=== PATIENT | female | born 1955 | race Caucasian/White ===

== ENCOUNTER 2017-10-09 18:19 | Inpatient (IN) | payer MEDICARE, OTHER, MEDICAID ==
[2017-10-09 22:46] VITALS: BP 155/75
[2017-10-09] MEDS ORDERED: Magnesium Hydroxide (MOM) 30 mL UDC PO PRN (23:20)
[2017-10-09] MEDS ORDERED: Maalox 30 mL Cup PO PRN (23:20)
[2017-10-10] MEDS: INSULIN ASPART SLIDING SCALE 100 UNITS/ML UNIT SUBQ SCH ×4 (07:07→21:00)
--- NOTE | 2017-10-10 18:57 | History & Physical ---
ADMIT DATE: 10/09/2017 HISTORY OF PRESENT ILLNESS: A 62-year-old female, who presented from a local hospital after she tried to harm herself. The patient stated that she was watching a show about suicide and young female and decided that she felt so sorry for them that she was going to experience there pain by taking a coca cola bottle and she cut a portion of it open, so that there was an open sharp edge of metal and then slowly started to run that across her lower abdomen especially along the left lower quadrant. When she arrived to the local Emergency Room, she told the ER physician that she was a danger to herself. She was transferred to [facility] for continued workup. ALLERGIES: None. MEDICATIONS: Were reviewed and reconciled. SOCIAL HISTORY: Denies tobacco, alcohol or drugs. She lives by herself. She is a full code. PAST MEDICAL HISTORY: She admits to major depressive disorder, anxiety, diabetes, muscle weakness, and high blood pressure. She denies any surgical procedures at this time. REVIEW OF SYSTEMS: GENERAL: No generalized body aches, fevers or chills. HEENT: Denies blurred vision, double vision or difficulty swallowing. NECK: Denied neck pain, just trouble swallowing or enlarged lymph nodes. CARDIOVASCULAR: Denies chest pain, chest pressure or shortness of breath. RESPIRATORY: Denies shortness of breath, cough or wheezing. ABDOMEN: Admits to left lower quadrant abdominal pain due to superficial lacerations. Denies any abdominal distention, nausea or vomiting. GENITOURINARY: Denies frequency, urgency, hesitancy. SKIN: Superficial laceration along the left lower quadrant of the abdomen is present. She denied any rashes or infections. MUSCULOSKELETAL: No decreased range of motion, muscle weakness, or unsteady gait. PSYCH: Admits to feeling anxious and depressed at this time. She admits to not wanting to kill herself and she would like to go home. LABORATORY DATA: Pending. PHYSICAL EXAMINATION: VITAL SIGNS: 97.3, 66, 18, 140/90. GENERAL: NAD. HEENT: PERRLA, EOMI. NECK: Supple. Trachea midline. CARDIOVASCULAR: Regular rate and rhythm. CHEST: CTA bilaterally. No wheezes, rales or rhonchi. ABDOMEN: Soft, nontender. She is tender directly over the superficial lacerations. Rest her abdomen is nontender, nondistended. Bowel sounds present in all 4 quadrants. SKIN: Left lower quadrant superficial lacerations without surrounding erythema or drainage. ASSESSMENT: 5150 hold for suicidal ideation, hypertension, diabetes, muscle weakness, major depressive disorder, generalized anxiety disorder. PLAN: Admit to [facility] for continued psychological workup. The patient is currently on 5150 hold. The patient will be evaluated by Dr. Tobias for further evaluation and for potential to remove the 5150 based on his assessment. Accu-Cheks, diabetic diet. Regular insulin sliding scale at home. Diabetic medications have been reviewed. There is a p.r.n. blood pressure medication to help control the patient's blood pressure while she is here in [facility]. [facility]# [id number]
[2017-10-10] MEDS: Escitalopram Oxalate 5 mg Tab PO SCH (21:00)
[2017-10-11] MEDS: INSULIN ASPART SLIDING SCALE 100 UNITS/ML UNIT SUBQ SCH ×4 (07:08→21:39)
[2017-10-11] MEDS ORDERED: INSULIN ASPART SLIDING SCALE 100 UNITS/ML UNIT SUBQ SCH (07:30)
--- NOTE | 2017-10-11 08:18 | General Progress Note ---
Subjective - Review of Systems Service Date: 10/11/17 Subjective: Pt seen and eval. I was asked by staff to see her as her bs have been very high. 400s last night. She's been refusing her insulin. Had a long discussion with her. Also, her abd wounds were examined. They'll all scabbed and healing well. No signs of infection. Objective - Results Recent Labs: Laboratory Last Values POC Glucose 180 MG/DL (70 - 105) H 10/11/17 00:10 - Physical Exam Vitals and I&O: Vital Signs Temp 97.7 F 10/11/17 06:30 Pulse 75 10/11/17 06:30 Resp 20 10/11/17 06:30 BP 128/63 10/11/17 06:30 Pulse Ox 96 10/11/17 06:30 Intake & Output 10/10/17 10/11/17 10/11/17 18:59 06:59 18:59 Intake Total 660 Balance 660 Intake: Oral 660 Other: # Voids 2 Active Medications: Current Medications Acetaminophen (Tylenol) 650 mg PO Q4HR PRN PRN Reason: Mild Pain / Temp above 100 Stop: 12/08/17 23:19 Al Hydrox/Mg Hydrox/Simethicone (Maalox) 30 ml PO Q4HR PRN PRN Reason: GI DISTRESS Stop: 12/08/17 23:19 Atorvastatin Calcium (Lipitor) 20 mg PO HS [facility] Stop: 12/10/17 20:59 Diphenoxylate HCl/Atropine (Lomotil) 1 tab PO QID PRN PRN Reason: Diarrhea Stop: 12/10/17 06:01 Escitalopram Oxalate (Lexapro) 5 mg PO HS [facility] PRN Reason: Protocol Stop: 12/09/17 20:59 Last Admin: 10/10/17 21:00 Dose: Not Given Gabapentin (Neurontin) 300 mg PO TID [facility] Stop: 12/10/17 08:59 Glipizide (Glucotrol) 10 mg PO BIDBRS [facility] Stop: 12/10/17 07:59 Insulin Aspart (Novolog Insulin Sliding Scale) 0 units SUBQ ACHS [facility] PRN Reason: Protocol Stop: 12/09/17 07:29 Last Admin: 10/11/17 07:08 Dose: Not Given Lorazepam (Ativan) 0.5 mg PO Q4HR PRN; Protocol PRN Reason: Anxiety Stop: 11/08/17 23:19 Magnesium Hydroxide (Milk Of Magnesia) 30 ml PO HS PRN PRN Reason: Constipation Miscellaneous (Ranolazine [Ranexa]) 500 mg PO BID [facility] Stop: 12/10/17 08:59 Pioglitazone HCl (Actos) 45 mg PO QDAC [facility] Stop: 12/10/17 07:59 Quetiapine Fumarate (Seroquel) 25 mg PO DAILY [facility] PRN Reason: Protocol Stop: 12/10/17 08:59 Quetiapine Fumarate (Seroquel) 50 mg PO HS [facility] PRN Reason: Protocol Stop: 12/10/17 20:59 Sertraline HCl (Zoloft) mg PO DAILY [facility] PRN Reason: Protocol Stop: 12/10/17 08:59 Zolpidem Tartrate (Ambien) 5 mg PO HS PRN PRN Reason: Insomnia Stop: 12/08/17 23:19 General: Alert, Cooperative, No acute distress HEENT: Atraumatic, PERRLA, EOMI Neck: Supple, no JVD, no Thyromegaly Cardiovascular: Regular rate, Normal S1, Normal S2 Lungs: Clear to auscultation Assessment/Plan - Assessment Assessment: DM-OOC Obese - Plan Plan: Pt is on oral diabetic meds, in addition to insulin. Had a long discussion with her. Advised her she needs to allow staff to give her insulin. Weight loss discussed in detail. BS log reviewed.
--- NOTE | 2017-10-11 16:14 | Psychosocial Evaluation ---
DATE OF SERVICE: 10/11/2017 PSYCHIATRIC INITIAL EVALUATION AND MENTAL STATUS EXAM CHIEF COMPLAINT: 5150 hold for dangerous to self. HISTORY OF PRESENT ILLNESS: The patient is a 62-year-old female who was placed on 5150 hold for danger to herself. The patient wanted to "slice her stomach with a knife" according to the hold. The patient did cut her skin in her stomach with a can edge as part of her arm. The patient has been angry and has been depressed. She is minimizing the fact that she cut herself in a suicidal attempt. She also has been in angry and in a depressed mood. She denies any history of depression and she is trying repair her action because of "attention". She has been having issues with her family and she has not been able to handle those and has been under pressure. PAST PSYCHIATRIC HISTORY: The patient minimizes her problems and she said they never had any psychiatric problems. PAST MEDICAL HISTORY: The patient has big flap of skin in her abdomen with some cuts and it seems that the patient lost followup weight. Otherwise, she denies any major medical problems. SOCIAL HISTORY: The patient is guarded and she said that she does not drink alcohol or use any street drugs and did not want to talk much about her family or situation. ALLERGIES: No known allergies. MENTAL STATUS EXAMINATION: The patient appears slightly older than her stated age. Overweight. Seems to be slightly manicky and hyperverbal and argumentative. The patient did not answer questions regarding hallucinations or delusions regarding to suicide or homicide and she said later on that she is not suicidal, but she wants attention. The patient is alert and oriented to time, place, person, and situation. Intact immediate, recent and remote memories. Poor insight and poor judgment. ASSESSMENT: PRIMARY DIAGNOSIS: Unspecified mood disorder, rule out bipolar disorder. TREATMENT PLAN: We will continue to monitor the patient's behavior and condition closely. Also, we will place the patient on 5250 hold and will continue to follow up closely. ESTIMATED LENGTH OF STAY: 5-7 days. THE PATIENT'S STRENGTHS AND WEAKNESSES: The patient's strength is not clear at this time. Weaknesses: Her ineffective coping and her poor insight. AFTER DISCHARGE PLAN: Outpatient treatment and followup. CRITERIA FOR DISCHARGE: The patient will not be suicidal. [facility]# [id number]
[2017-10-11] MEDS: Atorvastatin Calcium 10 MG TAB PO SCH (20:55)
[2017-10-11] MEDS: Escitalopram Oxalate 5 mg Tab PO SCH (20:56)
[2017-10-11] MEDS: Insulin Detemir 100 units/mL 10mL Vial SUBQ SCH (21:43)
[2017-10-12] MEDS: INSULIN ASPART SLIDING SCALE 100 UNITS/ML UNIT SUBQ SCH ×4 (06:32→20:55)
[2017-10-12] MEDS: Diphenoxylate/Atropine 2.5mg Tab PO PRN (18:20)
[2017-10-12] MEDS: Atorvastatin Calcium 10 MG TAB PO SCH (20:52)
[2017-10-12] MEDS: Insulin Detemir 100 units/mL 10mL Vial SUBQ SCH (20:55)
[2017-10-13] MEDS: INSULIN ASPART SLIDING SCALE 100 UNITS/ML UNIT SUBQ SCH ×4 (06:30→21:53)
[2017-10-13] MEDS: Atorvastatin Calcium 10 MG TAB PO SCH (21:25)
[2017-10-13] MEDS: Insulin Detemir 100 units/mL 10mL Vial SUBQ SCH (21:54)
[2017-10-14] MEDS: INSULIN ASPART SLIDING SCALE 100 UNITS/ML UNIT SUBQ SCH ×4 (06:43→21:16)
--- NOTE | 2017-10-14 08:36 | Progress Notes ---
DATE: 10/11/2017 Chart reviewed and patient interviewed. Also discussed the patient's condition with the staff and reviewed the records and labs. The patient is extremely agitated and irritable. The patient also is very hyperverbal and has pressured speech. Also, she is rambling and thought processes are circumstantial and tangential. Also, had periods of agitation and irritability during interview, but at the same time at certain time she seems to be hypomanic. ASSESSMENT: The patient is still agitated and manicky. TREATMENT PLAN: We will continue to monitor her behavior and her condition closely. Also, we will add Seroquel in a dose of 25 mg in the morning and 50 mg at bedtime and we will continue to follow up closely. [facility]# [id number]
--- NOTE | 2017-10-14 10:25 | Progress Notes ---
DATE: 10/12/2017 SUBJECTIVE: Chart reviewed and the patient interviewed. Also discussed the patient's condition with the staff and reviewed records and labs. The patient is quieter and she seems to be less depressed and less agitated. She also is more compliant with taking her medications with no side effects of medications. Also, we will increase Lexapro to 10 mg at bedtime. Also, a PTH will be held today. The patient also is compliant with taking her medications with no side effects of medications. [facility]# [id number]
--- NOTE | 2017-10-14 11:27 | Progress Notes ---
DATE: 10/13/2017 SUBJECTIVE: Chart reviewed and the patient interviewed. Also, discussed the patient's condition with the staff and reviewed records and labs. The patient is still withdrawn and she is interacting minimally with others. The patient also is still labile affect. She also is still having intermittent thoughts of self-harm although she is minimizing the fact that she cut her stomach. She also still has difficulty expressing herself. Otherwise, the patient denies any side effects of medications. ASSESSMENT: The patient is still depressed and high risk dangerous to self. TREATMENT PLAN: Continue monitoring her behavior and her condition closely. Also, continue adjusting psychotropic medications and followup. [facility]# [id number]
[2017-10-14] MEDS: Atorvastatin Calcium 10 MG TAB PO SCH (21:10)
[2017-10-14] MEDS: Insulin Detemir 100 units/mL 10mL Vial SUBQ SCH (21:18)
--- NOTE | 2017-10-14 22:35 | Progress Notes ---
DATE: 10/14/2017 SUBJECTIVE: Chart reviewed and the patient interviewed. Also discussed the patient's condition with the staff and reviewed records and labs. The patient is still anxious and is still in irritable mood. The patient also is still having mood swings and she is still at times depressed and anxious and other times calm and cooperative. She also is still at times resisting care. On the other hand, the patient in general has been cooperative and has been compliant with taking her medications with no side effects of medications. ASSESSMENT: The patient is still depressed and agitated. TREATMENT PLAN: Continue to monitor her behavior and her condition closely. Also supervisor case loading informed me that the patient's son does not want her back and he cannot take care of her. We will work on placement issue and discharge plans. JOB# [id number]
[2017-10-15] MEDS: INSULIN ASPART SLIDING SCALE 100 UNITS/ML UNIT SUBQ SCH ×4 (06:54→21:36)
--- NOTE | 2017-10-15 21:04 | Progress Notes ---
DATE: 10/15/2017 SUBJECTIVE: The patient placed in the hospital. She apparently cut her stomach with a knife. She said she was watching some TV shows and got curious, apparently she was angry, depressed concerns this may have been a suicide attempt, but the patient highly minimizing and guarded. Very odd explanation and presentation, the patient well oriented. Dr. Mcgraw seeing this patient over the past few days, I think she remains occlusive, withdrawn, sitting in a dark room, mood swings, irritable, concerns for depression, concerns this may have been a suicide effort. Family unable to care for her. ASSESSMENT: The patient is depressed, symptomatic, withdrawn. She has been cutting her stomach. It is unclear what her motivations or intentions were. PLAN: We will continue to monitor given ongoing symptoms or overt safety concerns. We are also working on the safe, this we will plan. JOB# [id number]
[2017-10-15] MEDS: Insulin Detemir 100 units/mL 10mL Vial SUBQ SCH (21:37)
[2017-10-15] MEDS: Atorvastatin Calcium 10 MG TAB PO SCH (21:40)
[2017-10-16] MEDS: INSULIN ASPART SLIDING SCALE 100 UNITS/ML UNIT SUBQ SCH ×4 (06:31→20:54)
--- NOTE | 2017-10-16 17:00 | Progress Notes ---
DATE: 10/16/2017 SUBJECTIVE: The patient was seen, chart reviewed, discussed with staff. The patient is currently in the hospital. She cut herself, cut her abdomen. It is unclear what her motivations were, but there are concerns that she was suicidal. The patient remains somewhat isolative, withdrawn, but seems to be improving, better spirits. Staff noting that she is calmer, friendlier, and more engaged. The patient noting that she does not feel suicidal at this time, but obviously are safety concerns given that she had cut her abdomen, which is quite dangerous. It is unclear what her discharge plans are. We are trying to help her with placement and work on a safe discharge plan. She has been compliant with treatment. No events, no agitation. Medications were reviewed. ASSESSMENT: The patient remains withdrawn, somewhat isolative, depressed, but improvement noted. She seems more engaged, better spirits. PLAN: We will continue to monitor. Continue Zoloft. She is both on Zoloft and Lexapro. We will stop the Zoloft in favor of one antidepressant and continue low dose Seroquel. We will monitor and follow up the patient to work on patient's coping. JOB# [id number]
[2017-10-16] MEDS: Atorvastatin Calcium 10 MG TAB PO SCH (20:52)
[2017-10-16] MEDS: Insulin Detemir 100 units/mL 10mL Vial SUBQ SCH (20:58)
[2017-10-17] MEDS: INSULIN ASPART SLIDING SCALE 100 UNITS/ML UNIT SUBQ SCH ×4 (06:32→21:49)
[2017-10-17] MEDS: Atorvastatin Calcium 10 MG TAB PO SCH (21:46)
[2017-10-17] MEDS: Insulin Detemir 100 units/mL 10mL Vial SUBQ SCH (21:49)
[2017-10-17] MEDS: Diphenoxylate/Atropine 2.5mg Tab PO PRN (22:04)
[2017-10-18] MEDS: INSULIN ASPART SLIDING SCALE 100 UNITS/ML UNIT SUBQ SCH (07:03)
--- NOTE | 2017-10-18 08:02 | Progress Notes ---
DATE: 10/17/2017 SUBJECTIVE: The patient is currently in the hospital, cut herself, cut her abdomen, unclear what her motivations were, denying any SI, at this time, but no safe discharge plan in place. Apparently, her sons are involved in trying to help him with placement. The patient is sleeping well, eating well, getting along well with staff and peers. MEDICATIONS: Reviewed including doses and frequencies and she is noting that she feels better. ASSESSMENT: The patient remains somewhat withdrawn, occlusive but improvement noted. There are ongoing safety concerns, but the patient does seem to be improving. [facility]# [id number]
--- NOTE | 2017-10-19 06:58 | Progress Notes ---
DATE: 10/18/2017 SUBJECTIVE: The patient states she is feeling better, more hopeful, motivated optimistic. Placement has been found that she wants to go to an apartment, so she does not want to go to the assisted living, waiting to hear ____ from her kids, getting along well with staff and peers. ASSESSMENT: The patient in better spirits. No SI. No HI. Linear and engaged. MEDICATIONS: Reviewed. PLAN: We will prepare for discharge. JOB# [id number]
--- NOTE | 2017-10-22 16:28 | Discharge Summary ---
DATE OF DISCHARGE: 10/18/2017 AGE: 62. SEX: Female. PHYSICIAN: Brisa Mcgraw M.D., M.P.H. FINAL DIAGNOSIS/PRIMARY DIAGNOSIS: Schizoaffective disorder, depressed episode, with psychotic features. REASON FOR HOSPITALIZATION: The patient was admitted to the hospital on a 5150 hold after the patient sliced her stomach with a knife and she wanted to kill herself. HOSPITAL COURSE: The patient continued to be anxious and depressed. She expressed some anger towards her son. The patient also was feeling hopeless. She is minimizing the fact that she cut her stomach with a knife. She continued to take Zoloft in the beginning, but then was stopped the Zoloft and start the patient on Seroquel. The patient was denying any thoughts of suicide or homicide. Her affect was brighter. solar installation manager helped with discharge of the patient. The patient was not suicidal or homicidal and she was discharged from the hospital. Physical examination of the patient showed no major medical problems while in the hospital. AFTER DISCHARGE PLANS: The patient discharged from the hospital with plan for outpatient treatment and followup. JOB# [id number]
== END 2017-10-18 14:20 | disposition home or self-care (01) | DRG 885 ==
LOC: GERO 18:19 → UNDOADMIN 18:19 → GERO 10-11 18:44
PROVIDERS: ADMIT Psychiatry & Neurology Psychiatry; ATTEND Psychiatry & Neurology Psychiatry
DX: F39 Unspecified mood [affective] disorder (principal); R45.851 Suicidal ideations; E11.9 Type 2 diabetes mellitus without complications; F32.9 Major depressive disorder, single episode, unspecified; I10 Essential (primary) hypertension; E66.9 Obesity, unspecified; M62.81 Muscle weakness (generalized); F41.1 Generalized anxiety disorder
CPT/HCPCS: 82948-90; 90899; G0410; J1815; Z7610